=== PATIENT | female | born 1990 | race Caucasian/White ===

== ENCOUNTER 2020-07-11 22:26 | Observation (INO) | payer OTHER ==
[2020-07-11] MEDS ORDERED: SODIUM CHLORIDE 0.9% 1,000 ML IV STA (22:56)
[2020-07-11] MEDS ORDERED: FAMOTIDINE 20 MG/2 ML VIAL IV STA (22:58)
--- NOTE | 2020-07-11 23:00 | ED ---
General Adult HPI - General Chief complaint: Abdominal Pain Stated complaint: Diff Breathing Time Seen by Provider: 07/11/20 22:42 Source: patient, RN notes reviewed Mode of arrival: ambulatory Limitations: no limitations - History of Present Illness Initial comments: 30-year-old female presents to the emergency department for a chief complaint of "belly pain" 2 hours. Patient states she started pain in her upper abdomen about 2 hours ago. She admits this was 30 minutes after eating a chicken quesadilla. Patient states it was a sudden epigastric pain that causes nausea. She did vomit once. Patient denies radiating pain. Patient denies lower abdominal pain. Patient states that she takes a deep breath it causes upper abdominal pain. She denies any chest pain. Patient states she has had this pain before but usually resolves.Patient has no other complaints at this time including shortness of breath, chest pain, headache, or visual changes. - Related Data Allergies Allergy/AdvReac Type Severity Reaction Status Date / Time No Known Allergies Allergy Verified 07/11/20 22:38 Review of Systems ROS Statement: Those systems with pertinent positive or pertinent negative responses have been documented in the HPI. ROS Other: All systems not noted in ROS Statement are negative. Past Medical History Past Medical History: No Reported History History of Any Multi-Drug Resistant Organisms: None Reported Past Surgical History: No Surgical Hx Reported Past Psychological History: No Psychological Hx Reported Smoking Status: Current every day smoker Past Alcohol Use History: Occasional Past Drug Use History: Marijuana General Exam Limitations: no limitations General appearance: alert, in no apparent distress Head exam: Present: atraumatic, normocephalic, normal inspection Eye exam: Present: normal appearance, PERRL, EOMI. Absent: scleral icterus, conjunctival injection, periorbital swelling ENT exam: Present: normal exam, mucous membranes moist Neck exam: Present: normal inspection, full ROM. Absent: tenderness, meningismus, lymphadenopathy Respiratory exam: Present: normal lung sounds bilaterally. Absent: respiratory distress, wheezes, rales, rhonchi, stridor Cardiovascular Exam: Present: regular rate, normal rhythm, normal heart sounds. Absent: systolic murmur, diastolic murmur, rubs, gallop, clicks GI/Abdominal exam: Present: soft, tenderness (epigastric tenderness, right upper quadrant tenderness, positive Corbett sign. No lower abdominal tenderness.), normal bowel sounds. Absent: distended, guarding, rebound, rigid Neurological exam: Present: alert Course Vital Signs 07/11/20 07/12/20 22:35 01:00 Temperature 98.1 F 98.3 F Pulse Rate 74 87 Respiratory 16 20 Rate Blood Pressure 130/84 103/68 O2 Sat by Pulse 100 97 Oximetry Medical Decision Making - Medical Decision Making Vitals are stable. CBC CMP unremarkable. Amylase and lipase are within normal limits. Urinalysis is unremarkable. Ultrasound shows cholelithiasis with gallstones at the gallbladder neck. No dilated ducts. Patient continues to have abdominal discomfort and vomiting. She will be admitted with further management. - Lab Data Result diagrams: 07/11/20 23:13 07/11/20 23:13 Lab Results 07/11/20 07/11/20 07/11/20 Range/Units 23:13 23:13 23:13 WBC 8.1 (3.8-10.6) k/uL RBC 4.99 (3.80-5.40) m/uL Hgb 14.6 (11.4-16.0) gm/dL Hct 45.7 (34.0-46.0) % MCV 91.6 (80.0-100.0) fL MCH 29.2 (25.0-35.0) pg MCHC 31.9 (31.0-37.0) g/dL RDW 13.1 (11.5-15.5) % Plt Count 279 (150-450) k/uL Neutrophils % 63 % Lymphocytes % 28 % Monocytes % 5 % Eosinophils % 1 % Basophils % 1 % Neutrophils # 5.1 (1.3-7.7) k/uL Lymphocytes # 2.3 (1.0-4.8) k/uL Monocytes # 0.4 (0-1.0) k/uL Eosinophils # 0.1 (0-0.7) k/uL Basophils # 0.0 (0-0.2) k/uL Sodium (137-145) mmol/L Potassium (3.5-5.1) mmol/L Chloride (98-107) mmol/L Carbon Dioxide (22-30) mmol/L Anion Gap mmol/L BUN (7-17) mg/dL Creatinine (0.52-1.04) mg/dL Est GFR (CKD-EPI)AfAm (>60 ml/min/1.73 sqM) Est GFR (CKD-EPI)NonAf (>60 ml/min/1.73 sqM) Glucose (74-99) mg/dL Plasma Lactic Acid Aramnd (0.7-2.0) mmol/L Calcium (8.4-10.2) mg/dL Total Bilirubin (0.2-1.3) mg/dL AST (14-36) U/L ALT (4-34) U/L Alkaline Phosphatase (38-126) U/L Total Protein (6.3-8.2) g/dL Albumin (3.5-5.0) g/dL Amylase (30-110) U/L Lipase (23-300) U/L Urine Color Yellow Urine Appearance Cloudy H (Clear) Urine pH 6.0 (5.0-8.0) Ur Specific [place] 1.021 (1.001-1.035) Urine Protein Negative (Negative) Urine Glucose (UA) Negative (Negative) Urine Ketones Negative (Negative) Urine Blood Negative (Negative) Urine Nitrite Negative (Negative) Urine Bilirubin Negative (Negative) Urine Urobilinogen <2.0 (<2.0) mg/dL Ur Leukocyte Esterase Trace H (Negative) Urine RBC 2 (0-5) /hpf Urine WBC 2 (0-5) /hpf Ur Squamous Epith Cells 4 (0-4) /hpf Urine Mucus Few H (None) /hpf Urine HCG, Qual Not Detected (Not Detectd) 07/11/20 07/11/20 Range/Units 23:13 23:13 WBC (3.8-10.6) k/uL RBC (3.80-5.40) m/uL Hgb (11.4-16.0) gm/dL Hct (34.0-46.0) % MCV (80.0-100.0) fL MCH (25.0-35.0) pg MCHC (31.0-37.0) g/dL RDW (11.5-15.5) % Plt Count (150-450) k/uL Neutrophils % % Lymphocytes % % Monocytes % % Eosinophils % % Basophils % % Neutrophils # (1.3-7.7) k/uL Lymphocytes # (1.0-4.8) k/uL Monocytes # (0-1.0) k/uL Eosinophils # (0-0.7) k/uL Basophils # (0-0.2) k/uL Sodium 138 (137-145) mmol/L Potassium 4.3 (3.5-5.1) mmol/L Chloride 103 (98-107) mmol/L Carbon Dioxide 27 (22-30) mmol/L Anion Gap 8 mmol/L BUN 8 (7-17) mg/dL Creatinine 0.79 (0.52-1.04) mg/dL Est GFR (CKD-EPI)AfAm >90 (>60 ml/min/1.73 sqM) Est GFR (CKD-EPI)NonAf >90 (>60 ml/min/1.73 sqM) Glucose 103 H (74-99) mg/dL Plasma Lactic Acid Armand 0.8 (0.7-2.0) mmol/L Calcium 9.9 (8.4-10.2) mg/dL Total Bilirubin 0.4 (0.2-1.3) mg/dL AST 22 (14-36) U/L ALT 19 (4-34) U/L Alkaline Phosphatase 61 (38-126) U/L Total Protein 7.6 (6.3-8.2) g/dL Albumin 4.7 (3.5-5.0) g/dL Amylase 50 (30-110) U/L Lipase 87 (23-300) U/L Urine Color Urine Appearance (Clear) Urine pH (5.0-8.0) Ur Specific [place] (1.001-1.035) Urine Protein (Negative) Urine Glucose (UA) (Negative) Urine Ketones (Negative) Urine Blood (Negative) Urine Nitrite (Negative) Urine Bilirubin (Negative) Urine Urobilinogen (<2.0) mg/dL Ur Leukocyte Esterase (Negative) Urine RBC (0-5) /hpf Urine WBC (0-5) /hpf Ur Squamous Epith Cells (0-4) /hpf Urine Mucus (None) /hpf Urine HCG, Qual (Not Detectd) Disposition Clinical Impression: Cholelithiasis, Abdominal pain, Vomiting Disposition: ADMITTED IP TO THIS [facility] Is patient prescribed a controlled substance at d/c from ED?: No Referrals: None,Stated [Primary Care Provider] - 1-2 days Time of Disposition: 01:38
[2020-07-11 23:26] LABS: Basophils % (A) 1 %; Eosinophils # (A) 0.1 k/uL (0-0.7); Eosinophils % (A) 1 %; HCT 45.7 % (34.0-46.0); HGB 14.6 gm/dL (11.4-16.0); Lymphocytes # (A) 2.3 k/uL (1.0-4.8); Lymphocytes % (A) 28 %; MCH 29.2 pg (25.0-35.0); MCHC 31.9 g/dL (31.0-37.0); MCV 91.6 fL (80.0-100.0); Mean Platelet Volume 7.6; Monocytes # (A) 0.4 k/uL (0-1.0); Monocytes % (A) 5 %; Neutrophils # (A) 5.1 k/uL (1.3-7.7); Neutrophils % (A) 63 %; Platelet Count 279 k/uL (150-450); RBC 4.99 m/uL (3.80-5.40); RDW 13.1 % (11.5-15.5); WBC 8.1 k/uL (3.8-10.6)
[2020-07-11 23:32] LABS: Appearance,Urine Cloudy (Clear); Bilirubin,Urine Negative (Negative); Blood,Urine Negative (Negative); Color,Urine Yellow; Glucose,Urine (UA) Negative (Negative); Ketones,Urine Negative (Negative); Leukocyte Esterase,Urine Trace (Negative); Mucus,Urine Few /hpf; Nitrite,Urine Negative (Negative); Protein,Urine Negative (Negative); RBC,Urine 2 /hpf (0-5); Specific Gravity,Urine 1.021 (1.001-1.035); Squamous Epithelial Cell,Urine 4 /hpf (0-4); Urobilinogen,Urine <2.0 mg/dL (<2.0); WBC,Urine 2 /hpf (0-5)
[2020-07-11 23:35] LABS: ALT 19 U/L (4-34); AST 22 U/L (14-36); African American GFR (CKD) >90 (>60 ml/min/1.73 sqM); Albumin 4.7 g/dL (3.5-5.0); Alkaline Phosphatase 61 U/L (38-126); Amylase 50 U/L (30-110); Anion Gap 8 mmol/L; Blood Urea Nitrogen 8 mg/dL (7-17); Calcium 9.9 mg/dL (8.4-10.2); Carbon Dioxide 27 mmol/L (22-30); Chloride 103 mmol/L (98-107); Glucose 103 mg/dL (74-99); Non-African American GFR(CKD) >90 (>60 ml/min/1.73 sqM); Potassium 4.3 mmol/L (3.5-5.1); Sodium 138 mmol/L (137-145); Total Bilirubin 0.4 mg/dL (0.2-1.3); Total Protein 7.6 g/dL (6.3-8.2)
[2020-07-11] MEDS: ONDANSETRON 4 MG/2 ML VIAL IVP STA (23:48)
[2020-07-12] MEDS ORDERED: KETOROLAC 15 MG/ML 1 ML VIAL IVP STA (00:28)
--- NOTE | 2020-07-12 00:31 | US ---
EXAMINATION TYPE: US abdomen limited DATE OF EXAM: 07/11/2020 COMPARISON: NONE CLINICAL HISTORY: ruq. EXAM MEASUREMENTS: There is no evidence of pancreatic mass. Liver shows no focal defect. There are echogenic foci in the gallbladder with shadowing. Gallbladder wall measures 3 mm. Gallbladder measures 3.3 cm in diameter. The right kidney measures 9.9 x 3.3 cm. There is no hydronephrosis. There are gallstones at the gall bladder neck. The common bile duct measures 6 mm. Impression Cholelithiasis. Gallstone at the gallbladder neck. No dilated ducts.
[2020-07-12] MEDS ORDERED: METOCLOPRAMIDE 5 MG/ML 2 ML VIAL IVP STA (00:36)
[2020-07-12] MEDS ORDERED: diphenhydrAMINE 50 MG/ML 1 ML VIAL IVP STA (00:37)
[2020-07-12] MEDS ORDERED: NALOXONE 0.4 MG/ML 1 ML VIAL IV PRN (01:35)
[2020-07-12] MEDS: SODIUM CHLORIDE 0.9% 1,000 ML IV SCH ×3 (02:12→20:19)
[2020-07-12] MEDS: HYDROmorphone 0.5 MG/0.5 ML SYRINGE IVP PRN ×6 (06:50→19:07)
[2020-07-12] MEDS: ONDANSETRON 4 MG/2 ML VIAL IVP PRN ×2 (06:50→20:14)
[2020-07-12] MEDS ORDERED: IV FLUID CONTINUATION 100 ML IV ONE (10:35)
[2020-07-12] MEDS ORDERED: LACTATED RINGERS 1,000 ML IV ONE (10:36)
[2020-07-12] MEDS ORDERED: LIDOCAINE 1% (10MG/ML) FOR IV START INTRADERMA ONE (10:51)
--- NOTE | 2020-07-12 10:58 | P.GSHP ---
History of Present Illness H&P Date: 07/12/20 Chief Complaint: Epigastric and right quadrant pain This is a 30-year-old female was admitted through the emergency room last complaints of epigastric right upper quadrant pain. Patient's workup found have evidence of gallstones in the neck of the gallbladder. She admitted for cholecystitis and cholelithiasis. Past Medical History Past Medical History: No Reported History History of Any Multi-Drug Resistant Organisms: None Reported Past Surgical History: No Surgical Hx Reported Past Anesthesia/Blood Transfusion Reactions: No Reported Reaction Past Psychological History: Anxiety, Depression Smoking Status: Current every day smoker Past Alcohol Use History: Occasional Past Drug Use History: Marijuana Additional Drug Use History / Comment(s): smokes half a pack a day since 18, minus three years that she did not smoke. Smokes marijuana twice weekly. - Past Family History Father Family Medical History: Hypertension Medications and Allergies Home Medications Medication Instructions Recorded Confirmed Type No Known Home Medications 07/12/20 07/12/20 History Allergies Allergy/AdvReac Type Severity Reaction Status Date / Time No Known Allergies Allergy Verified 07/12/20 07:19 Surgical - Exam Vital Signs Temp Pulse Resp BP Pulse Ox 98.1 F 74 16 130/84 100 07/11/20 22:35 07/11/20 22:35 07/11/20 22:35 07/11/20 22:35 07/11/20 22:35 - General well developed, well nourished, no distress - Eyes PERRL - ENT normal pinna - Neck no masses - Respiratory normal expansion - Cardiovascular Rhythm: regular - Abdomen Mild right quadrant pain Abdomen: soft Results - Labs 07/11/20 23:13 07/11/20 23:13 Abnormal Lab Results - Last 24 Hours (Table) 07/11/20 07/11/20 Range/Units 23:13 23:13 Glucose 103 H (74-99) mg/dL Urine Appearance Cloudy H (Clear) Ur Leukocyte Esterase Trace H (Negative) Urine Mucus Few H (None) /hpf Diabetes panel 07/11/20 Range/Units 23:13 Sodium 138 (137-145) mmol/L Potassium 4.3 (3.5-5.1) mmol/L Chloride 103 (98-107) mmol/L Carbon Dioxide 27 (22-30) mmol/L BUN 8 (7-17) mg/dL Creatinine 0.79 (0.52-1.04) mg/dL Glucose 103 H (74-99) mg/dL Calcium 9.9 (8.4-10.2) mg/dL AST 22 (14-36) U/L ALT 19 (4-34) U/L Alkaline Phosphatase 61 (38-126) U/L Total Protein 7.6 (6.3-8.2) g/dL Albumin 4.7 (3.5-5.0) g/dL Calcium panel 07/11/20 Range/Units 23:13 Calcium 9.9 (8.4-10.2) mg/dL Albumin 4.7 (3.5-5.0) g/dL Pituitary panel 07/11/20 Range/Units 23:13 Sodium 138 (137-145) mmol/L Potassium 4.3 (3.5-5.1) mmol/L Chloride 103 (98-107) mmol/L Carbon Dioxide 27 (22-30) mmol/L BUN 8 (7-17) mg/dL Creatinine 0.79 (0.52-1.04) mg/dL Glucose 103 H (74-99) mg/dL Calcium 9.9 (8.4-10.2) mg/dL Adrenal panel 07/11/20 Range/Units 23:13 Sodium 138 (137-145) mmol/L Potassium 4.3 (3.5-5.1) mmol/L Chloride 103 (98-107) mmol/L Carbon Dioxide 27 (22-30) mmol/L BUN 8 (7-17) mg/dL Creatinine 0.79 (0.52-1.04) mg/dL Glucose 103 H (74-99) mg/dL Calcium 9.9 (8.4-10.2) mg/dL Total Bilirubin 0.4 (0.2-1.3) mg/dL AST 22 (14-36) U/L ALT 19 (4-34) U/L Alkaline Phosphatase 61 (38-126) U/L Total Protein 7.6 (6.3-8.2) g/dL Albumin 4.7 (3.5-5.0) g/dL Assessment and Plan Assessment: Cholelithiasis Cholecystitis Patient will undergo laparoscopic cholecystectomy.
[2020-07-12] MEDS ORDERED: SCOPOLAMINE 1.5MG/72HR PATCH TRANSDERM ONE (11:00)
[2020-07-12] MEDS ORDERED: DEXAMETHASONE SOD PHOSPHATE 10 MG/ML 1 ML VIAL IV ONE (11:00)
[2020-07-12] MEDS ORDERED: HEPARIN SODIUM,PORCINE 5,000 UNIT/ML 1 ML VIAL SQ ONE (11:08)
[2020-07-12] MEDS ORDERED: HEPARIN SODIUM,PORCINE 5,000 UNIT/ML 1 ML VIAL ONE (11:11)
[2020-07-12] MEDS ORDERED: fentaNYL (PF) 50 MCG/ML 2 ML AMP ONE (11:42)
[2020-07-12] MEDS ORDERED: NEOSTIGMINE 1 MG/ML 10 ML VIAL ONE (11:42)
[2020-07-12] MEDS ORDERED: HYDROmorphone (PF) 1 MG/ML ONE (11:42)
[2020-07-12] MEDS ORDERED: ROCURONIUM BROMIDE 10 MG/ML 5 ML VIAL IV ONE (11:42)
[2020-07-12] MEDS ORDERED: SUCCINYLCHOLINE CHLORIDE 100 MG/5 ML SYR IV ONE (11:42)
[2020-07-12] MEDS ORDERED: PROPOFOL 10 MG/ML 20 ML VIAL IV ONE (11:42)
[2020-07-12] MEDS ORDERED: LIDOCAINE 1% INJ 10MG/ML (20 ML MDV) ONE (11:42)
[2020-07-12] MEDS ORDERED: GLYCOPYRROLATE 0.2 MG/ML 2 ML VIAL ONE (11:42)
[2020-07-12] MEDS ORDERED: KETOROLAC 15 MG/ML 1 ML VIAL ONE (11:42)
[2020-07-12] MEDS ORDERED: MIDAZOLAM 2 MG/2 ML VIAL ONE (11:42)
[2020-07-12] MEDS ORDERED: BUPIVACAINE (PF) 0.5% 30 ML VIAL SQ ONE (12:10)
--- NOTE | 2020-07-12 12:20 | P.OP ---
Date of Procedure: 07/12/20 Preoperative Diagnosis: Cholelithiasis Postoperative Diagnosis: Cholelithiasis Cholecystitis Procedure(s) Performed: Laparoscopic cholecystectomy Anesthesia: NILAM Surgeon: Isaac Wright Estimated Blood Loss (ml): 5 Pathology: other (Gallbladder) Condition: stable Disposition: PACU Description of Procedure: The patient was placed on the operating table. The patient received a general endotracheal tube anesthesia. The patients abdomen was prepped and draped in the usual sterile fashion. Through an infraumbilical stab incision, the fascia of the anterior abdominal wall was grasped with a pair of Kochers and then the Veress needle was placed in the peritoneal cavity. Position of the Veress needle was confirmed with positive drop test. The abdomen was then insufflated. After adequate insufflation, the 10 mm trocar was placed in the peritoneal cavity. Following this the laparoscope was placed in the peritoneal cavity. The patient was placed in the head-up, right side up position and then a 5 mm trocar was placed in the right lateral and right subcostal position under direct visualization. A 8 mm trocar was placed in the epigastric position. The gallbladder was grasped in the fundus and infundibulum. Traction on the gallbladder was placed in the lateral and the cephalad positions. The triangle of Calot was visualized.. The cystic duct was bluntly dissected until the union of the cystic duct and common bile duct was seen. A critical view of safety was achieved. The cystic duct was then divided and sealed with the Harmonic scissors. A PDS Endoloop was then placed throughout the cystic duct stump. The cystic artery divided and sealed with the Harmonic scissors. The gallbladder was then removed from the liver bed using Harmonic scissors. The gallbladder was then extracted through the epigastric port site. Operative field was checked for any bleeding spots and Harmonic scissors was used to coagulate the liver bed. The abdomen was irrigated. The trocars were removed. The skin was closed using interrupted 3-0 Vicryl suture. Dermabond dressing were applied. The patient tolerated the procedure well.
[2020-07-12] MEDS: ONDANSETRON 4 MG/2 ML VIAL IVP STA (12:55)
[2020-07-12] MEDS ORDERED: NICOTINE 14MG/24HR PATCH TRANSDERM STA (13:31)
[2020-07-12] MEDS: HYDROcodone/APAP 7.5-325MG 1 EACH TAB PO PRN ×2 (13:41→20:18)
[2020-07-13] MEDS: SODIUM CHLORIDE 0.9% 1,000 ML IV SCH (00:32)
[2020-07-13] MEDS: HYDROmorphone 0.5 MG/0.5 ML SYRINGE IVP PRN ×3 (00:32→11:51)
[2020-07-13] MEDS: HYDROcodone/APAP 7.5-325MG 1 EACH TAB PO PRN ×2 (05:59→13:24)
[2020-07-13 08:22] VITALS: TEMP 98.2
[2020-07-13] MEDS: ONDANSETRON 4 MG/2 ML VIAL IVP PRN (08:33)
--- NOTE | 2020-07-13 11:47 | P.DS ---
Providers Date of admission: 07/12/20 02:00 Expected date of discharge: 07/13/20 Attending physician: Isaac Wright Primary care physician: Stated None Hospital Course: Discharge diagnosis 1. Acute cholecystitis 2. Cholelithiasis Hospital course This is a 30-year-old female was admitted through the emergency room last complaints of epigastric right upper quadrant pain. Patient's workup found have evidence of gallstones in the neck of the gallbladder. She admitted for cholecystitis and cholelithiasis. Patient underwent Laparoscopic cholecystectomy with Dr. Wright. She tolerated surgery well with no complications. She reports passing gas. She is tolerating diet. She has been up and ambulating. She is afebrile. She is stable for discharge. Physician Upholstery Handler note has been reviewed by physician. Signing provider agrees with the documented findings, assessment, and plan of care. Patient Condition at Discharge: Stable Plan - Discharge Summary Discharge Rx Participant: No New Discharge Prescriptions: New Docusate [Colace] 100 mg PO BID #30 capsule Hydrocodone/Acetaminophen [[place] 5-325] 1 tab PO Q6HR PRN 3 Days #12 tab PRN Reason: Pain Discharge Medication List Docusate [Colace] 100 mg PO BID #30 capsule 07/13/20 [Rx] Hydrocodone/Acetaminophen [[place] 5-325] 1 tab PO Q6HR PRN 3 Days #12 tab 07/13/20 [Rx] Follow up Appointment(s)/Referral(s): None,Stated [Primary Care Provider] - 1-2 days Isaac Wright MD [STAFF PHYSICIAN] - 1 Week Patient Instructions/Handouts: *Surgery [facility] - Scopalamine Patch Instructions Activity/Diet/Wound Care/Special Instructions: No driving while taking [place] No lifting over 10 pounds You may shower. No soaking or tub baths for 2 weeks Very light activity until you are reevaluated at your follow up appointment with your surgeon Diet Low fat Discharge Disposition: HOME SELF-CARE
[2020-07-13 12:29] VITALS: BP 115/74; PULSE 78; RESP 16
== END 2020-07-13 14:25 | disposition home or self-care (01) ==
LOC: EC 22:26 → 6PED 07-12 02:00
PROVIDERS: ADMIT Surgery; ATTEND Surgery
DX: K80.12 Calculus of gallbladder with acute and chronic cholecystitis without obstruction (principal); F41.9 Anxiety disorder, unspecified; F32.9 Major depressive disorder, single episode, unspecified; F17.210 Nicotine dependence, cigarettes, uncomplicated; Z82.49 Family history of ischemic heart disease and other diseases of the circulatory system; Z79.891 Long term (current) use of opiate analgesic
CPT/HCPCS: 96375 ×2; 96361; 96374; 99285; 36415; 81025 ×2; 88304; 80053; 82150; 83605; 83690; 85025; 81001; 76705; 47562; G0378 ×2; S4990; J2250; J1200; J1644; J1100; J2710; J2765; J0690; J2405 ×3; J2001; J3010; J1170 ×3; J1885; J0330; J2704

== ENCOUNTER 2021-05-01 21:32 | Emergency (ER) | payer OTHER ==
[2021-05-01] MEDS ORDERED: SODIUM CHLORIDE 0.9% 1,000 ML IV STA (21:49)
[2021-05-01 22:30] VITALS: TEMP 98.7
[2021-05-01 22:30] LABS: Basophils % (A) 1 %; Eosinophils # (A) 0.1 k/uL (0-0.7); Eosinophils % (A) 2 %; HCT 37.7 % (34.0-46.0); HGB 12.7 gm/dL (11.4-16.0); Lymphocytes # (A) 2.4 k/uL (1.0-4.8); Lymphocytes % (A) 33 %; MCH 28.5 pg (25.0-35.0); MCHC 33.7 g/dL (31.0-37.0); MCV 84.6 fL (80.0-100.0); Mean Platelet Volume 6.8; Monocytes # (A) 0.3 k/uL (0-1.0); Monocytes % (A) 4 %; Neutrophils # (A) 4.2 k/uL (1.3-7.7); Neutrophils % (A) 57 %; Platelet Count 336 k/uL (150-450); RBC 4.45 m/uL (3.80-5.40); RDW 13.4 % (11.5-15.5); WBC 7.3 k/uL (3.8-10.6)
--- NOTE | 2021-05-01 22:30 | ED ---
Overdose HPI - General Stated Complaint: Overdose Source: patient, EMS Mode of arrival: EMS Limitations: altered mental status - History of Present Illness Initial Comments: 31-year-old white female, alert to person and place presents to the emergency room via EMS with an overdose of heroin. EMS states that the boyfriend was with patient and gave her Narcan and then called EMS. Patient arousable admits to using heroin but will not answer whether with IV. She does admit to having used heroin in the past and denies any other drug use. Patient denies any pain at this time this keeps stating that she is cold. She is asking for the boyfriend Shaji to come to the bedside. She denies any assault or injuries. She states that she is safe relationship and is not doing anything she does not want to do. Patient denies any other medical history. Vital signs are stable at this time with sat of 98% on room air. MD Complaint: accidental overdose Intent: other (Accidental overdose of heroin) How Overdose Was Discovered: called family/friend, family/friend present at time (Per EMS boyfriend gave Narcan) Context: Accidental Overdose: uncertain what happened Treatments Prior to Arrival: narcan - Related Data Previous Rx's Medication Instructions Recorded Docusate [Colace] 100 mg PO BID #30 capsule 07/13/20 Hydrocodone/Acetaminophen [[place] 1 tab PO Q6HR PRN 3 Days #12 tab 07/13/20 5-325] Allergies Allergy/AdvReac Type Severity Reaction Status Date / Time No Known Allergies Allergy Verified 07/12/20 07:19 Review of Systems ROS Statement: Those systems with pertinent positive or pertinent negative responses have been documented in the HPI. ROS Other: All systems not noted in ROS Statement are negative. Past Medical History Past Medical History: No Reported History History of Any Multi-Drug Resistant Organisms: None Reported Past Surgical History: No Surgical Hx Reported Past Anesthesia/Blood Transfusion Reactions: No Reported Reaction Past Psychological History: Anxiety, Depression Smoking Status: Current every day smoker Past Alcohol Use History: Occasional Past Drug Use History: Marijuana Additional Drug Use History / Comment(s): smokes half a pack a day since 18, minus three years that she did not smoke. Smokes marijuana twice weekly. - Past Family History Father Family Medical History: Hypertension General Exam Limitations: altered mental status (Slow to respond, heroin overdose) General appearance: alert, in no apparent distress Head exam: Present: atraumatic, normocephalic, normal inspection Eye exam: Present: normal appearance, PERRL, EOMI. Absent: scleral icterus, conjunctival injection, nystagmus, periorbital swelling Pupils: Present: normal accommodation ENT exam: Present: normal exam, mucous membranes moist Neck exam: Present: normal inspection, full ROM. Absent: tenderness, meningismus, lymphadenopathy, thyromegaly Respiratory exam: Present: normal lung sounds bilaterally. Absent: respiratory distress, wheezes, rales, rhonchi, stridor, chest wall tenderness, accessory muscle use, decreased breath sounds Cardiovascular Exam: Present: regular rate, normal rhythm, normal heart sounds. Absent: systolic murmur, diastolic murmur, rubs, gallop, clicks GI/Abdominal exam: Present: soft, normal bowel sounds. Absent: distended, tenderness, guarding, rebound, rigid Extremities exam: Present: normal inspection, full ROM, normal capillary refill. Absent: tenderness, pedal edema, joint swelling, calf tenderness Back exam: Present: normal inspection, full ROM. Absent: tenderness, CVA tenderness (R), CVA tenderness (L), muscle spasm, paraspinal tenderness, vertebral tenderness, rash noted Neurological exam: Present: alert. Absent: CN II-XII intact Psychiatric exam: Present: flat affect. Absent: manic, homicidal ideation, suicidal ideation Skin exam: Present: dry, intact, normal color. Absent: rash, cyanosis, diaphoretic, erythema, petechiae, pallor, mottled Course Vital Signs 05/01/21 21:49 Temperature 98.7 F Pulse Rate 82 Respiratory 22 Rate Blood Pressure 132/80 O2 Sat by Pulse 97 Oximetry Medical Decision Making - Medical Decision Making Hemoglobin and hematocrit is 12 and 37 respectively, white count 7.3. Patient maintaining oxygen level on room air of 98% or better. She is awake and alert and answering questions properly. Salicylate and acetaminophen and alcohol levels are all negative. Electrolytes are within normal limits. EKG sinus rhythm with no ST elevation. Patient will be discharged home with her significant othe and directed to stop using heroin because it will kill her. Case discussed with Dr. Frederick - Lab Data Result diagrams: 05/01/21 22:10 05/01/21 22:10 Lab Results 05/01/21 05/01/21 05/01/21 Range/Units 22:10 22:10 22:10 WBC 7.3 (3.8-10.6) k/uL RBC 4.45 (3.80-5.40) m/uL Hgb 12.7 (11.4-16.0) gm/dL Hct 37.7 (34.0-46.0) % MCV 84.6 (80.0-100.0) fL MCH 28.5 (25.0-35.0) pg MCHC 33.7 (31.0-37.0) g/dL RDW 13.4 (11.5-15.5) % Plt Count 336 (150-450) k/uL MPV 6.8 Neutrophils % 57 % Lymphocytes % 33 % Monocytes % 4 % Eosinophils % 2 % Basophils % 1 % Neutrophils # 4.2 (1.3-7.7) k/uL Lymphocytes # 2.4 (1.0-4.8) k/uL Monocytes # 0.3 (0-1.0) k/uL Eosinophils # 0.1 (0-0.7) k/uL Basophils # 0.0 (0-0.2) k/uL Sodium 139 (137-145) mmol/L Potassium 3.9 (3.5-5.1) mmol/L Chloride 101 (98-107) mmol/L Carbon Dioxide 28 (22-30) mmol/L Anion Gap 10 mmol/L BUN 13 (7-17) mg/dL Creatinine 0.64 (0.52-1.04) mg/dL Est GFR (CKD-EPI)AfAm >90 (>60 ml/min/1.73 sqM) Est GFR (CKD-EPI)NonAf >90 (>60 ml/min/1.73 sqM) Glucose 78 (74-99) mg/dL Plasma Lactic Acid Armand 1.0 (0.7-2.0) mmol/L Calcium 9.7 (8.4-10.2) mg/dL Total Bilirubin 0.5 (0.2-1.3) mg/dL AST 28 (14-36) U/L ALT 15 (4-34) U/L Alkaline Phosphatase 60 (38-126) U/L Total Protein 7.4 (6.3-8.2) g/dL Albumin 4.5 (3.5-5.0) g/dL Amylase 59 (30-110) U/L Lipase 62 (23-300) U/L Salicylates <1.0 mg/dL Acetaminophen <10.0 ug/mL Serum Alcohol <10 mg/dL - EKG Data EKG shows normal: sinus rhythm, intervals (Ventricular rate of 86, IN interval 0.116, QRS of 0.96, QTC of 0.452) Disposition Clinical Impression: Accidental drug overdose, Heroin abuse Disposition: HOME SELF-CARE Condition: Fair Instructions (If sedation given, give patient instructions): Adult Overdose (ED) Additional Instructions: Stop using heroin he will kill you. Follow-up with your primary care doctor. Contact [facility] for help with drug addiction. Is patient prescribed a controlled substance at d/c from ED?: No Referrals: None,Stated [Primary Care Provider] - 1-2 days Time of Disposition: 22:54
[2021-05-01 22:43] LABS: ALT 15 U/L (4-34); AST 28 U/L (14-36); Acetaminophen <10.0 ug/mL; African American GFR (CKD) >90 (>60 ml/min/1.73 sqM); Albumin 4.5 g/dL (3.5-5.0); Alcohol <10 mg/dL; Alkaline Phosphatase 60 U/L (38-126); Amylase 59 U/L (30-110); Anion Gap 10 mmol/L; Blood Urea Nitrogen 13 mg/dL (7-17); Calcium 9.7 mg/dL (8.4-10.2); Carbon Dioxide 28 mmol/L (22-30); Chloride 101 mmol/L (98-107); Glucose 78 mg/dL (74-99); Lipase 62 U/L (23-300); Non-African American GFR(CKD) >90 (>60 ml/min/1.73 sqM); Potassium 3.9 mmol/L (3.5-5.1); Salicylate <1.0 mg/dL; Sodium 139 mmol/L (137-145); Total Bilirubin 0.5 mg/dL (0.2-1.3); Total Protein 7.4 g/dL (6.3-8.2)
[2021-05-01 23:18] VITALS: BP 133/80; PULSE 101; RESP 18
== END 2021-05-01 23:54 | disposition home or self-care (01) ==
LOC: EC 21:32
DX: T40.1X1A Poisoning by heroin, accidental (unintentional), initial encounter (principal); F11.10 Opioid abuse, uncomplicated; F12.90 Cannabis use, unspecified, uncomplicated; F17.210 Nicotine dependence, cigarettes, uncomplicated; F32.9 Major depressive disorder, single episode, unspecified; F41.9 Anxiety disorder, unspecified
CPT/HCPCS: 36415; 93005; 80053; 82150; 83605; 83690; 85025; 80143; 80179; 99284; G0480; 80320

== ENCOUNTER 2021-11-19 19:08 | Emergency (ER) | payer OTHER ==
[2021-11-19 20:25] VITALS: RESP 20; TEMP 98.8
[2021-11-19 21:06] LABS: Appearance,Urine Cloudy (Clear); Bacteria,Urine Rare /hpf; Bilirubin,Urine Negative (Negative); Blood,Urine Negative (Negative); Color,Urine Yellow; Glucose,Urine (UA) Negative (Negative); Ketones,Urine Trace (Negative); Leukocyte Esterase,Urine Negative (Negative); Mucus,Urine Occasional /hpf; Nitrite,Urine Negative (Negative); PH, Urine 5.5 (5.0-8.0); Protein,Urine Trace (Negative); RBC,Urine 3 /hpf (0-5); Squamous Epithelial Cell,Urine 5 /hpf (0-4); WBC,Urine 3 /hpf (0-5)
[2021-11-19 21:18] LABS: Specific Gravity,Urine 1.046 (1.001-1.035)
--- NOTE | 2021-11-19 22:43 | ED ---
General Adult HPI - General Chief complaint: Recheck/Abnormal Lab/Rx Stated complaint: Headache,Cough,Fever Time Seen by Provider: 11/19/21 20:00 Source: patient Mode of arrival: ambulatory Limitations: no limitations - History of Present Illness Initial comments: This 31-year-old female presents with complaint of covid-like symptoms. She states that for the past 3 weeks she has had cough, sore throat, headache, and fatigue. She states that it has been worse over the past 3 days. She has slept a lot more than normal. She has had chills but no definitive fever. She states that she had some mild dysuria as well and is questioning the possibility of a urinary tract infection. She also is an IV drug abuser and states that she is developed a erythematous rash at her injection sites of her bilateral forearms. She denies any possibility of . No other complaints or modifying factors. - Related Data Previous Rx's Medication Instructions Recorded Docusate [Colace] 100 mg PO BID #30 capsule 07/13/20 Hydrocodone/Acetaminophen [[place] 1 tab PO Q6HR PRN 3 Days #12 tab 07/13/20 5-325] Albuterol Sulfate [Albuterol 4 puff PO Q4H PRN #8.5 gm 11/19/21 Sulfate Hfa] Sulfamethox-Tmp 800-160Mg [Bactrim 1 tab PO Q12HR #20 tab 11/19/21 DS 800-160 mg] dexAMETHasone ORAL [Hexadrol] 6 mg PO DAILY #7 tablet 11/19/21 Allergies Allergy/AdvReac Type Severity Reaction Status Date / Time No Known Allergies Allergy Verified 11/19/21 20:22 Review of Systems ROS Statement: Those systems with pertinent positive or pertinent negative responses have been documented in the HPI. ROS Other: All systems not noted in ROS Statement are negative. Past Medical History Past Medical History: No Reported History History of Any Multi-Drug Resistant Organisms: None Reported Past Surgical History: Cholecystectomy Past Anesthesia/Blood Transfusion Reactions: No Reported Reaction Past Psychological History: Anxiety, Depression Smoking Status: Current every day smoker Past Alcohol Use History: Occasional Past Drug Use History: IV Drug Use, Marijuana - Past Family History Father Family Medical History: Hypertension General Exam - General Exam Comments Initial Comments: GENERAL: The patient is well nourished and well hydrated. VITAL SIGNS: Heart rate, blood pressure, respiratory rate reviewed as recorded in nurse's notes. EYES: Pupils are round and reactive. Extraocular movements are intact. No conjunctival / lid redness or swelling. ENT: No external evidence of injury, swelling, or ecchymosis. Airway is patent. Throat is clear. NECK: Nontender. No swelling or evidence of injury. No subcutaneous emphysema. Trachea is midline. No thyroid mass. HEART: Regular rate and rhythm. Good peripheral pulses. LUNGS/CHEST: Breath sounds clear and equal bilaterally. No rales, rhonchi, or wheezes. No ecchymosis, subcutaneous emphysema, or tenderness. ABDOMEN: Abdomen soft without tenderness. No palpable masses or organomegaly. No peritoneal signs. No abdominal wall swelling or ecchymosis. EXTREMITIES: No extremity tenderness. Normal muscle tone and function. No thoracolumbar tenderness. NEUROLOGIC: Sensation is grossly intact. Cranial nerve exam reveals face is symmetrical, tongue is midline, speech is clear. SKIN: No abrasions or ecchymosis is noted. There is some track noland noted to bilateral forearms with associated mild erythema. There is no abscess formation identified. PSYCHIATRIC: Alert and oriented. Appropriate behavior and judgment. Limitations: no limitations Course Vital Signs 11/19/21 20:22 Temperature 98.8 F Pulse Rate 74 Respiratory 20 Rate Blood Pressure 102/59 O2 Sat by Pulse 100 Oximetry Medical Decision Making - Medical Decision Making The patient is seen and examined. Her covid test came back positive. The urine is negative. The urinalysis does not show any definitive evidence of urinary tract infection. Her oxygenation status is stable. It appears as though she does have a slight cellulitis to her forearms worse on the left side. She will be prescribed antibiotics for her cellulitis. She also will be prescribed albuterol HFA and dexamethasone. Return parameters are discussed. She is counseled regarding intravenous drug abuse. Close follow-up recommended. - Lab Data Lab Results 11/19/21 11/19/21 11/19/21 Range/Units 20:34 20:49 20:49 Urine Color Yellow Urine Appearance Cloudy H (Clear) Urine pH 5.5 (5.0-8.0) Ur Specific [place] 1.046 H (1.001-1.035) Urine Protein Trace H (Negative) Urine Glucose (UA) Negative (Negative) Urine Ketones Trace H (Negative) Urine Blood Negative (Negative) Urine Nitrite Negative (Negative) Urine Bilirubin Negative (Negative) Urine Urobilinogen 2.0 (<2.0) mg/dL Ur Leukocyte Esterase Negative (Negative) Urine RBC 3 (0-5) /hpf Urine WBC 3 (0-5) /hpf Ur Squamous Epith Cells 5 H (0-4) /hpf Urine Bacteria Rare H (None) /hpf Urine Mucus Occasional H (None) /hpf Urine HCG, Qual Not Detected (Not Detectd) Coronavirus (PCR) Detected A (Not Detectd) Disposition Clinical Impression: Intravenous drug abuse, COVID, Fatigue, Headache Disposition: HOME SELF-CARE Condition: Good Instructions (If sedation given, give patient instructions): Coronavirus Disease 2019 (COVID-19), Cellulitis (ED), Opioid Use Disorder (ED) Prescriptions: Albuterol Sulfate [Albuterol Sulfate Hfa] 4 puff PO Q4H PRN #8.5 gm PRN Reason: Cough Sulfamethox-Tmp 800-160Mg [Bactrim DS 800-160 mg] 1 tab PO Q12HR #20 tab dexAMETHasone ORAL [Hexadrol] 6 mg PO DAILY #7 tablet Is patient prescribed a controlled substance at d/c from ED?: No Referrals: None,Stated [Primary Care Provider] - 1-2 days Time of Disposition: 22:49
[2021-11-19 23:42] VITALS: BP 100/62; PULSE 72
== END 2021-11-19 23:15 | disposition home or self-care (01) ==
LOC: EC 19:08
DX: U07.1 COVID-19 (principal); F19.10 Other psychoactive substance abuse, uncomplicated; F17.200 Nicotine dependence, unspecified, uncomplicated; F12.90 Cannabis use, unspecified, uncomplicated
CPT/HCPCS: 81001; 81025; 87635; 99284

== ENCOUNTER 2022-01-24 04:41 | Emergency (ER) | payer OTHER ==
--- NOTE | 2022-01-24 04:44 | ED ---
Overdose HPI - General Stated Complaint: Overdose Time Seen by Provider: 01/24/22 04:43 Source: RN notes reviewed, old records reviewed Mode of arrival: EMS Limitations: no limitations - History of Present Illness Initial Comments: This is a 31-year-old female to the emergency department for evaluation. Patient presents of heroin overdose requiring Narcan. Patient currently is in no acute distress awake alert acting appropriately. She denies any other drugs or alcohol. MD Complaint: accidental overdose -: minutes(s) Intent: unwilling to say How Overdose Was Discovered: called 911 Context: Intentional Overdose: drug/ETOH problems Context: Accidental Overdose: wanted to get high Treatments Prior to Arrival: narcan - Related Data Previous Rx's Medication Instructions Recorded Docusate [Colace] 100 mg PO BID #30 capsule 07/13/20 Hydrocodone/Acetaminophen [[place] 1 tab PO Q6HR PRN 3 Days #12 tab 07/13/20 5-325] Albuterol Sulfate [Albuterol 4 puff PO Q4H PRN #8.5 gm 11/19/21 Sulfate Hfa] Sulfamethox-Tmp 800-160Mg [Bactrim 1 tab PO Q12HR #20 tab 11/19/21 DS 800-160 mg] dexAMETHasone ORAL [Hexadrol] 6 mg PO DAILY #7 tablet 11/19/21 Allergies Allergy/AdvReac Type Severity Reaction Status Date / Time No Known Allergies Allergy Verified 01/24/22 05:27 Review of Systems ROS Statement: Those systems with pertinent positive or pertinent negative responses have been documented in the HPI. ROS Other: All systems not noted in ROS Statement are negative. Past Medical History Past Medical History: No Reported History History of Any Multi-Drug Resistant Organisms: None Reported Past Surgical History: Cholecystectomy Past Anesthesia/Blood Transfusion Reactions: No Reported Reaction Past Psychological History: Anxiety, Depression Smoking Status: Current every day smoker Past Alcohol Use History: Occasional Past Drug Use History: IV Drug Use, Marijuana - Past Family History Father Family Medical History: Hypertension General Exam General appearance: alert, in no apparent distress Head exam: Present: atraumatic, normocephalic, normal inspection Eye exam: Present: normal appearance, PERRL, EOMI. Absent: scleral icterus, conjunctival injection, periorbital swelling ENT exam: Present: normal exam, mucous membranes moist Neck exam: Present: normal inspection. Absent: tenderness, meningismus, lymphadenopathy Respiratory exam: Present: normal lung sounds bilaterally. Absent: respiratory distress, wheezes, rales, rhonchi, stridor Cardiovascular Exam: Present: regular rate, normal rhythm, normal heart sounds. Absent: systolic murmur, diastolic murmur, rubs, gallop, clicks GI/Abdominal exam: Present: soft, normal bowel sounds. Absent: distended, tenderness, guarding, rebound, rigid Extremities exam: Present: normal inspection, full ROM, normal capillary refill. Absent: tenderness, pedal edema, joint swelling, calf tenderness Back exam: Present: normal inspection Neurological exam: Present: alert, oriented X3, CN II-XII intact Psychiatric exam: Present: normal affect, normal mood Skin exam: Present: warm, dry, intact, normal color. Absent: rash Course Vital Signs 01/24/22 04:50 Temperature 98 F Pulse Rate 90 Respiratory 18 Rate Blood Pressure 110/72 O2 Sat by Pulse 99 Oximetry - Reevaluation(s) Reevaluation #1: 01/24/2022 Medical record is reviewed Patient symptoms are improved here in the emergency department Patient informed of results and questions are answered Medical Decision Making - Medical Decision Making 34 female to the emergency room unsafe for evaluation of overdose. Patient symptoms resolved with Narcan prior to arrival, awake alert here in the ER not homicidal or suicidal can be discharged home Disposition Clinical Impression: Overdose, Opioid abuse Disposition: HOME SELF-CARE Condition: Fair Instructions (If sedation given, give patient instructions): Narcotic Safety (ED), Opioid Safety (ED), Opioid Use Disorder (ED) Is patient prescribed a controlled substance at d/c from ED?: No Referrals: None,Stated [Primary Care Provider] - 1-2 days
[2022-01-24 05:25] VITALS: BP 110/72; PULSE 90; RESP 18; TEMP 98
== END 2022-01-24 05:00 | disposition home or self-care (01) ==
LOC: EC 04:41
DX: T40.1X1A Poisoning by heroin, accidental (unintentional), initial encounter (principal); F11.10 Opioid abuse, uncomplicated; F17.200 Nicotine dependence, unspecified, uncomplicated
CPT/HCPCS: 99284

== ENCOUNTER 2022-12-02 17:37 | Emergency (ER) | payer OTHER ==
--- NOTE | 2022-12-02 17:40 | ED ---
General Adult HPI <Maria Luisa Stapleton - Last Filed: 12/02/22 17:39> - General Source: patient, RN notes reviewed Mode of arrival: ambulatory Limitations: no limitations <EliasmannyBalbir - Last Filed: 12/02/22 19:44> - History of Present Illness Onset/Timin -: hour(s) Severity scale (1-10): 0 Consistency: constant Improves with: none Worsens with: none Associated Symptoms: nausea/vomiting Treatments Prior to Arrival: none <Matthew Moreno - Last Filed: 12/03/22 00:43> - General Stated complaint: hematemesis - 13 weeks Time Seen by Provider: 12/02/22 17:37 - History of Present Illness Initial comments: 32-year-old female presents to the emergency department with vomiting. Patient is bright red blood in her vomit. Patient also reports approximately 13 weeks . (Maria Luisa Stapleton) This patient is a 32-year-old woman, stating she is approximately 13 weeks by an ultrasound done at [facility]. She presents here to have evaluation of nausea and vomiting. Patient states that she felt well when she had gone to work this morning. She had gotten up around 5:00 taken her morning medicines, gone to work. She states around 8 AM she started having nausea. Since that time she has had multiple rounds of vomiting and she is not able to keep down any food or fluids. She states there was a little bit of abdominal discomfort but not really pain. No change in bowel movements. No change in urination (Matthew Moreno) - Related Data Previous Rx's Medication Instructions Recorded Docusate [Colace] 100 mg PO BID #30 capsule 07/13/20 Hydrocodone/Acetaminophen [[place] 1 tab PO Q6HR PRN 3 Days #12 tab 07/13/20 5-325] Albuterol Sulfate [Albuterol 4 puff PO Q4H PRN #8.5 gm 11/19/21 Sulfate Hfa] Sulfamethox-Tmp 800-160Mg [Bactrim 1 tab PO Q12HR #20 tab 11/19/21 DS 800-160 mg] dexAMETHasone ORAL [Hexadrol] 6 mg PO DAILY #7 tablet 11/19/21 Ondansetron Odt [Zofran ODT] 4 mg PO Q8HR PRN #10 tab 12/03/22 Allergies Allergy/AdvReac Type Severity Reaction Status Date / Time No Known Allergies Allergy Verified 12/02/22 18:37 Review of Systems ROS Other: All systems not noted in ROS Statement are negative. <PeytonbaileyMaria Luisa tee - Last Filed: 12/02/22 17:39> ROS Other: All systems not noted in ROS Statement are negative. <Balbir Clemens - Last Filed: 12/02/22 19:44> ROS Other: All systems not noted in ROS Statement are negative. Constitutional: Denies: fever, chills Respiratory: Denies: cough, dyspnea Cardiovascular: Denies: chest pain, palpitations Gastrointestinal: Reports: nausea, vomiting. Denies: abdominal pain, diarrhea Genitourinary: Denies: dysuria, frequency, hematuria Musculoskeletal: Denies: back pain Skin: Denies: rash Neurological: Denies: headache, weakness, numbness <JeseniamaureenMatthew - Last Filed: 12/03/22 00:43> ROS Statement: Those systems with pertinent positive or pertinent negative responses have been documented in the HPI. Past Medical History Past Medical History: No Reported History History of Any Multi-Drug Resistant Organisms: None Reported Past Surgical History: Cholecystectomy Past Anesthesia/Blood Transfusion Reactions: No Reported Reaction Past Psychological History: Anxiety, Depression Smoking Status: Current every day smoker Past Alcohol Use History: Occasional Past Drug Use History: IV Drug Use, Marijuana - Past Family History Father Family Medical History: Hypertension <PeytonbaileyMaria Luisa tee - Last Filed: 12/02/22 17:39> General Exam General appearance: alert, in no apparent distress Head exam: Present: atraumatic, normocephalic Eye exam: Present: normal appearance. Absent: scleral icterus, conjunctival injection Neck exam: Present: normal inspection, full ROM Respiratory exam: Present: normal lung sounds bilaterally. Absent: respiratory distress, wheezes, rales, rhonchi, stridor Cardiovascular Exam: Present: regular rate, normal rhythm, normal heart sounds. Absent: systolic murmur, diastolic murmur, rubs, gallop GI/Abdominal exam: Present: soft. Absent: distended, tenderness, guarding, rebound, rigid, mass Extremities exam: Present: normal inspection, normal capillary refill. Absent: pedal edema, calf tenderness Back exam: Present: normal inspection. Absent: CVA tenderness (R), CVA tenderness (L) Neurological exam: Present: alert Skin exam: Present: warm, dry, intact, normal color. Absent: rash <Matthew Moreno - Last Filed: 12/03/22 00:43> Course Vital Signs 12/02/22 12/02/22 18:35 19:50 Temperature 98.3 F Pulse Rate 82 91 Respiratory 20 Rate Blood Pressure 106/66 119/66 O2 Sat by Pulse 100 100 Oximetry Medical Decision Making - Lab Data Result diagrams: 12/02/22 19:49 12/02/22 19:49 <Matthew Moreno - Last Filed: 12/03/22 00:43> - Lab Data Lab Results 12/02/22 12/02/22 12/02/22 Range/Units 19:49 19:49 19:49 WBC 8.2 (3.8-10.6) k/uL RBC 4.84 (3.80-5.40) m/uL Hgb 14.1 (11.4-16.0) gm/dL Hct 42.1 (34.0-46.0) % MCV 86.9 (80.0-100.0) fL MCH 29.1 (25.0-35.0) pg MCHC 33.4 (31.0-37.0) g/dL RDW 12.7 (11.5-15.5) % Plt Count 245 (150-450) k/uL MPV 7.7 Neutrophils % 86 % Lymphocytes % 8 % Monocytes % 4 % Eosinophils % 1 % Basophils % 0 % Neutrophils # 7.0 (1.3-7.7) k/uL Lymphocytes # 0.7 L (1.0-4.8) k/uL Monocytes # 0.4 (0-1.0) k/uL Eosinophils # 0.1 (0-0.7) k/uL Basophils # 0.0 (0-0.2) k/uL Sodium 135 L (137-145) mmol/L Potassium 4.2 (3.5-5.1) mmol/L Chloride 103 (98-107) mmol/L Carbon Dioxide 25 (22-30) mmol/L Anion Gap 7 mmol/L BUN 10 (7-17) mg/dL Creatinine 0.57 (0.52-1.04) mg/dL Est GFR (CKD-EPI)AfAm >90 (>60 ml/min/1.73 sqM) Est GFR (CKD-EPI)NonAf >90 (>60 ml/min/1.73 sqM) Glucose 76 (74-99) mg/dL Calcium 9.2 (8.4-10.2) mg/dL Total Bilirubin 0.8 (0.2-1.3) mg/dL AST 107 H (14-36) U/L ALT 45 H (4-34) U/L Alkaline Phosphatase 95 (38-126) U/L Total Protein 8.2 (6.3-8.2) g/dL Albumin 4.6 (3.5-5.0) g/dL Urine Color Yellow Urine Appearance Clear (Clear) Urine pH 6.0 (5.0-8.0) Ur Specific [place] 1.033 (1.001-1.035) Urine Protein Trace H (Negative) Urine Glucose (UA) Negative (Negative) Urine Ketones 1+ H (Negative) Urine Blood Negative (Negative) Urine Nitrite Negative (Negative) Urine Bilirubin Negative (Negative) Urine Urobilinogen 2.0 (<2.0) mg/dL Ur Leukocyte Esterase Trace H (Negative) Urine RBC 1 (0-5) /hpf Urine WBC 2 (0-5) /hpf Ur Squamous Epith Cells 2 (0-4) /hpf Hyaline Casts 1 (0-2) /lpf Urine Mucus Many H (None) /hpf Disposition <Maria Luisa Stapleton - Last Filed: 12/02/22 17:39> <Balbir Clemens - Last Filed: 12/02/22 19:44> Is patient prescribed a controlled substance at d/c from ED?: No <Matthew Moreno - Last Filed: 12/03/22 00:43> Clinical Impression: Hyperemesis gravidarum Disposition: HOME SELF-CARE Condition: Good Instructions (If sedation given, give patient instructions): Acute Nausea and Vomiting (ED) Prescriptions: Ondansetron Odt [Zofran ODT] 4 mg PO Q8HR PRN #10 tab PRN Reason: Nausea Referrals: Tyree Hoyt MD [Primary Care Provider] - 1-2 days
[2022-12-02 18:37] VITALS: TEMP 98.3
[2022-12-02 20:33] LABS: Basophils % (A) 0 %; Eosinophils # (A) 0.1 k/uL (0-0.7); Eosinophils % (A) 1 %; HCT 42.1 % (34.0-46.0); HGB 14.1 gm/dL (11.4-16.0); Lymphocytes # (A) 0.7 k/uL (1.0-4.8); Lymphocytes % (A) 8 %; MCH 29.1 pg (25.0-35.0); MCHC 33.4 g/dL (31.0-37.0); MCV 86.9 fL (80.0-100.0); Mean Platelet Volume 7.7; Monocytes # (A) 0.4 k/uL (0-1.0); Monocytes % (A) 4 %; Neutrophils % (A) 86 %; Platelet Count 245 k/uL (150-450); RBC 4.84 m/uL (3.80-5.40); RDW 12.7 % (11.5-15.5); WBC 8.2 k/uL (3.8-10.6)
[2022-12-02 20:42] LABS: ALT 45 U/L (4-34); AST 107 U/L (14-36); African American GFR (CKD) >90 (>60 ml/min/1.73 sqM); Albumin 4.6 g/dL (3.5-5.0); Alkaline Phosphatase 95 U/L (38-126); Anion Gap 7 mmol/L; Blood Urea Nitrogen 10 mg/dL (7-17); Calcium 9.2 mg/dL (8.4-10.2); Carbon Dioxide 25 mmol/L (22-30); Chloride 103 mmol/L (98-107); Glucose 76 mg/dL (74-99); Non-African American GFR(CKD) >90 (>60 ml/min/1.73 sqM); Potassium 4.2 mmol/L (3.5-5.1); Sodium 135 mmol/L (137-145); Total Bilirubin 0.8 mg/dL (0.2-1.3); Total Protein 8.2 g/dL (6.3-8.2)
[2022-12-02 21:02] LABS: Appearance,Urine Clear (Clear); Bilirubin,Urine Negative (Negative); Blood,Urine Negative (Negative); Color,Urine Yellow; Glucose,Urine (UA) Negative (Negative); Hyaline Casts,Urine 1 /lpf (0-2); Ketones,Urine 1+ (Negative); Leukocyte Esterase,Urine Trace (Negative); Mucus,Urine Many /hpf; Nitrite,Urine Negative (Negative); Protein,Urine Trace (Negative); RBC,Urine 1 /hpf (0-5); Specific Gravity,Urine 1.033 (1.001-1.035); Squamous Epithelial Cell,Urine 2 /hpf (0-4); WBC,Urine 2 /hpf (0-5)
[2022-12-02] MEDS ORDERED: DEXTROSE 5%-0.45% NACL 1,000 ML IV ONE (22:01)
[2022-12-02] MEDS ORDERED: SODIUM CHLORIDE 0.9% 1,000 ML IV ONE (22:01)
[2022-12-02] MEDS ORDERED: ONDANSETRON 4 MG/2 ML VIAL IVP STA (22:02)
[2022-12-03 00:55] VITALS: BP 114/72; PULSE 68; RESP 16
== END 2022-12-03 00:55 | disposition home or self-care (01) ==
LOC: EC 17:37
DX: O21.0 Mild hyperemesis gravidarum (principal); F17.200 Nicotine dependence, unspecified, uncomplicated; F12.90 Cannabis use, unspecified, uncomplicated; Z90.49 Acquired absence of other specified parts of digestive tract; Z3A.13 13 weeks gestation of pregnancy
CPT/HCPCS: 36415; 80053; 85025; 81001; 99284; 96374; 96361; J2405

== ENCOUNTER 2022-12-22 00:48 | Observation (INO) | payer OTHER ==
[2022-12-22] MEDS ORDERED: SODIUM CHLORIDE 0.9% 1,000 ML IV ONE (00:58)
[2022-12-22] MEDS ORDERED: MORPHINE SULFATE 4 MG/ML SYRINGE IVP STA ×2 (01:00→02:00)
[2022-12-22 01:54] LABS: Basophils # (A) 0.1 k/uL (0-0.2); Basophils % (A) 0 %; Eosinophils % (A) 0 %; HCT 39.3 % (34.0-46.0); HGB 13.2 gm/dL (11.4-16.0); Lymphocytes # (A) 0.8 k/uL (1.0-4.8); Lymphocytes % (A) 4 %; MCH 29.1 pg (25.0-35.0); MCHC 33.6 g/dL (31.0-37.0); MCV 86.6 fL (80.0-100.0); Mean Platelet Volume 7.5; Monocytes # (A) 0.8 k/uL (0-1.0); Monocytes % (A) 4 %; Neutrophils # (A) 18.7 k/uL (1.3-7.7); Neutrophils % (A) 91 %; Platelet Count 277 k/uL (150-450); RBC 4.54 m/uL (3.80-5.40); WBC 20.5 k/uL (3.8-10.6)
--- NOTE | 2022-12-22 02:05 | US ---
EXAMINATION TYPE: US OB >= 14 wk fetus DATE OF EXAM: 12/22/2022 COMPARISON: None CLINICAL HISTORY: labor, non-viable ? Patient states she had an ultrasound at 7 wee ks at outside facility. Pain. No bleeding. TECHNIQUE: Transabdominal (TA) GESTATIONAL AGE / DATING Physician Established: (15 weeks/6 days) EDC: 06/09/2023 Dates by Current Scan: (16 weeks/5 days) EDC: 06/03/2023 Beta HCG (if available): Not available at this time SURVEY IUP: Single PLACENTA: Anterior PREVIA: No Previa ORION: 2.7 cm Oligohydramnios CERVICAL LENGTH (transabdominal: norm > 3.0cm): 2.4 cm BIOMETRY PRESENTATION: Breech BPD: 3.5 cm 16 weeks / 6 days HC: 13.5 cm 17 weeks / 1 days AC: 10.9 cm 16 weeks / 6 days FL: 2.0 cm 16 weeks / 0 days ESTIMATED WEIGHT IN GRAMS: 157 grams ESTIMATED WEIGHT IN LBS/OZ: 0 lbs. 6 oz. WEIGHT PERCENTAGE BASED ON ESTABLISHED DATES: 80% HC/AC: 1.2 Normal FL/AC: 18% HEART RATE: 0 bpm IUP visualized with negative heart tones- M-mode and color doppler performed. Oligohydramnios. Short cervix. IMPRESSION: There is oligohydramnios. There is intrauterine demise at approximately 16 weeks.
[2022-12-22 02:07] LABS: ALT 29 U/L (4-34); AST 50 U/L (14-36); African American GFR (CKD) >90 (>60 ml/min/1.73 sqM); Alkaline Phosphatase 99 U/L (38-126); Anion Gap 11 mmol/L; Blood Urea Nitrogen 9 mg/dL (7-17); Calcium 9.1 mg/dL (8.4-10.2); Carbon Dioxide 19 mmol/L (22-30); Chloride 103 mmol/L (98-107); Glucose 142 mg/dL (74-99); Non-African American GFR(CKD) >90 (>60 ml/min/1.73 sqM); Potassium 3.6 mmol/L (3.5-5.1); Sodium 133 mmol/L (137-145); Total Bilirubin 0.7 mg/dL (0.2-1.3); Total Protein 7.3 g/dL (6.3-8.2)
[2022-12-22 02:13] LABS: INR 0.9 (<1.2); Prothrombin Time 9.5 sec (9.0-12.0)
[2022-12-22 02:14] LABS: Partial Thromboplastin Time 23.4 sec (22.0-30.0)
[2022-12-22] MEDS ORDERED: NALOXONE 0.4 MG/ML 1 ML VIAL IV PRN (02:22)
--- NOTE | 2022-12-22 02:22 | ED ---
Abdominal Pain HPI - General Chief Complaint: Abdominal Pain Stated Complaint: 16wks preg,abd pain Time Seen by Provider: 12/22/22 00:55 Source: patient Mode of arrival: ambulatory Limitations: no limitations - History of Present Illness Initial Comments: 32-year-old female who is presents to the emergency Department with abdominal pain and suspected contractions. She is approximately 16 weeks . [place] with [place] [facility] [place] [facility] [place] She is high risk due to being on Suboxone. States that she has been clean for 10 months. She is down to 4 mg of Suboxone that she has been slowly titrating herself down in order to be "clean for the baby". She reports that just prior to hospital arrival she felt extreme pain in her abdomen. Arriving to the hospital she felt too gushes of fluid. She denies having any vaginal bleeding yet. Unsure of her blood type. Denies any abdominal trauma. No fevers. Has one daughter who is 11 years old. Denies any issues with care throughout this . No other alleviating, precipitating or modifying factors - Related Data Home Medications Medication Instructions Recorded Confirmed Metoclopramide [Reglan] 10 mg PO DIRECTED 12/22/22 12/22/22 QUEtiapine FUMARATE [SEROquel] 250 mg PO HS 12/22/22 12/22/22 buprenorphine HCL [Subutex] 4 mg SUBLINGUAL DAILY 12/22/22 12/22/22 busPIRone HCL 5 mg PO TID 12/22/22 12/22/22 Allergies Allergy/AdvReac Type Severity Reaction Status Date / Time No Known Allergies Allergy Verified 12/22/22 00:49 Review of Systems ROS Statement: Those systems with pertinent positive or pertinent negative responses have been documented in the HPI. ROS Other: All systems not noted in ROS Statement are negative. Past Medical History Past Medical History: No Reported History Additional Past Medical History / Comment(s): previous IVDA clean since february 2022 History of Any Multi-Drug Resistant Organisms: None Reported Past Surgical History: Cholecystectomy Past Anesthesia/Blood Transfusion Reactions: No Reported Reaction Past Psychological History: Anxiety, Depression Smoking Status: Vaper Past Alcohol Use History: None Reported, Occasional Past Drug Use History: None Reported, IV Drug Use, Marijuana - Past Family History Father Family Medical History: Hypertension Mother Additional Family Medical History / Comment(s): of liver failure General Exam Limitations: no limitations General appearance: alert, anxious, in distress Head exam: Present: atraumatic, normocephalic, normal inspection Eye exam: Present: normal appearance, PERRL, EOMI. Absent: scleral icterus, conjunctival injection, periorbital swelling ENT exam: Present: normal exam, mucous membranes moist Neck exam: Present: normal inspection. Absent: tenderness, meningismus, lymphadenopathy Respiratory exam: Present: normal lung sounds bilaterally. Absent: respiratory distress, wheezes, rales, rhonchi, stridor Cardiovascular Exam: Present: normal rhythm, tachycardia, normal heart sounds. Absent: systolic murmur, diastolic murmur, rubs, gallop, clicks GI/Abdominal exam: Present: soft, tenderness (Suprapubic), normal bowel sounds. Absent: distended, guarding, rebound, rigid External exam: Present: other (Speculum exam not performed however the patient does have clear fluid saturating the bed. There is also a tinge of blood noted on tissue paper that the patient has in her underwear) Speculum exam: Present: vaginal bleeding Extremities exam: Present: normal inspection, full ROM, normal capillary refill. Absent: tenderness, pedal edema, joint swelling, calf tenderness Back exam: Present: normal inspection Neurological exam: Present: alert, oriented X3, CN II-XII intact Psychiatric exam: Present: normal affect, normal mood Skin exam: Present: warm, dry, intact, normal color. Absent: rash Course Vital Signs 12/22/22 12/22/22 00:49 01:47 Temperature 98.8 F Pulse Rate 140 H 110 H Respiratory 32 H 18 Rate Blood Pressure 137/87 102/59 O2 Sat by Pulse 100 100 Oximetry Medical Decision Making - Medical Decision Making Was pt. sent in by a medical professional or institution (, PA, [facility], urgent care, hospital, or halfway...) When possible be specific No Did you speak to anyone other than the patient for history (EMS, parent, family, police, friend...)? What history was obtained from this source No Did you review nursing and triage notes (agree or disagree)? Why? I reviewed and agree with nursing and triage notes Were old charts reviewed (outside hosp., previous admission, EMS record, old EKG, old radiological studies, urgent care reports/EKG's, halfway records)? Report findings No Differential Diagnosis (chest pain, altered mental status, abdominal pain women, abdominal pain men, vaginal bleeding, weakness, fever, dyspnea, syncope, head ache, dizziness, GI bleed, back pain, seizure, CVA, palpatations, mental health)? threatened miscarriage, incomplete , demise, PROM EKG interpreted by me (3pts min.). Not done X-rays interpreted by me (1pt min.). Not done CT interpreted by me (1pt min.). Not sone U/S interpreted by me (1pt. min.). Yes What testing was considered but not performed or refused? (CT, X-rays, U/S, labs)? Why? None What meds were considered but not given or refused? Why? None Did you discuss the management of the patient with other professionals (professionals i.e. , PA, [employer], lab, RT, psych nurse, social media executive, rayon coner, teacher, airport operations officer, briefcase sewer)? Give summary Dr. Hyatt Was smoking cessation discussed for >3mins.? No Was critical care preformed (if so, how long)? yes, 35 minutes Were there social determinants of health that impacted care today? How? (Homelessness, low income, unemployed, alcoholism, drug addiction, transportation, low edu. Level, literacy, decrease access to med. care, longterm, rehab)? No Was there de-escalation of care discussed even if they declined (Discuss DNR or withdrawal of care, Hospice)? DNR status No What co-morbidities impacted this encounter? (DM, HTN, Smoking, COPD, CAD, Cancer, CVA, ARF, Chemo, Hep., AIDS, mental health diagnosis, sleep apnea, morbid obesity)? Hx substance abuse on suboxone Was patient admitted / discharged? Hospital course, mention meds given and route, prescriptions, significant lab abnormalities, going to OR and other pertinent info. Upon arrival patient was placed into room 28. A thorough history and physical exam was performed. Patient does have a gush of fluid. Bleeding noted on the toilet paper the patient has placed in her vagina. IV is established. She is given 4 of morphine for pain control. Laboratory studies were conducted with symmetry a white count of 20.5. Bedside ultrasound was performed. Oligo hydramnios appreciated. No heart tones. I did follow this with formal ultrasound which demonstrates similar results. This is discussed with the patient. She continues to have significant pain and therefore an additional 4 mg of morphine is ordered. I called and spoke with Dr. Hyatt. Patient's will be admitted for delivery Undiagnosed new problem with uncertain prognosis? Yes Drug Therapy requiring intensive monitoring for toxicity (Heparin, Nitro, Insulin, Cardizem)? No Were any procedures done? Bedside ultrasound Diagnosis/symptom? demise with premature labor Acute, or Chronic, or Acute on Chronic? acute Uncomplicated (without systemic symptoms) or Complicated (systemic symptoms)? complicated Side effects of treatment? None Exacerbation, Progression, or Severe Exacerbation? no Poses a threat to life or bodily function? How? (Chest pain, USA, CA, pneumonia, PE, COPD, DKA, ARF, appy, cholecystitis, CVA, Diverticulitis, Homicidal, Suicidal, threat to staff... and all critical care pts) Yes Undiagnosed new problem with uncertain prognosis? @ -[No] Drug Therapy requiring intensive monitoring for toxicity (Heparin, Nitro, Insulin, Cardizem)? @ -[No] Were any procedures done? @ -[No] Diagnosis/symptom? @ -[default] Acute, or Chronic, or Acute on Chronic? @ -[default] Uncomplicated (without systemic symptoms) or Complicated (systemic symptoms)? @ -[default] Side effects of treatment? @ -[No] Exacerbation, Progression, or Severe Exacerbation? @ -[No] Poses a threat to life or bodily function? How? (Chest pain, USA, CA, pneumonia, PE, COPD, DKA, ARF, appy, cholecystitis, CVA, Diverticulitis, Homicidal, Suicidal, threat to staff... and all critical care pts) @ -[No] - Lab Data Result diagrams: 12/23/22 05:37 12/23/22 05:37 Lab Results 12/22/22 12/22/22 12/22/22 Range/Units 01:00 01:00 01:19 WBC 20.5 H (3.8-10.6) k/uL RBC 4.54 (3.80-5.40) m/uL Hgb 13.2 (11.4-16.0) gm/dL Hct 39.3 (34.0-46.0) % MCV 86.6 (80.0-100.0) fL MCH 29.1 (25.0-35.0) pg MCHC 33.6 (31.0-37.0) g/dL RDW 13.0 (11.5-15.5) % Plt Count 277 (150-450) k/uL MPV 7.5 Neutrophils % 91 % Lymphocytes % 4 % Monocytes % 4 % Eosinophils % 0 % Basophils % 0 % Neutrophils # 18.7 H (1.3-7.7) k/uL Lymphocytes # 0.8 L (1.0-4.8) k/uL Monocytes # 0.8 (0-1.0) k/uL Eosinophils # 0.0 (0-0.7) k/uL Basophils # 0.1 (0-0.2) k/uL PT (9.0-12.0) sec INR (<1.2) APTT (22.0-30.0) sec Sodium (137-145) mmol/L Potassium (3.5-5.1) mmol/L Chloride (98-107) mmol/L Carbon Dioxide (22-30) mmol/L Anion Gap mmol/L BUN (7-17) mg/dL Creatinine (0.52-1.04) mg/dL Est GFR (CKD-EPI)AfAm (>60 ml/min/1.73 sqM) Est GFR (CKD-EPI)NonAf (>60 ml/min/1.73 sqM) Glucose (74-99) mg/dL Calcium (8.4-10.2) mg/dL Total Bilirubin (0.2-1.3) mg/dL AST (14-36) U/L ALT (4-34) U/L Alkaline Phosphatase (38-126) U/L Total Protein (6.3-8.2) g/dL Albumin (3.5-5.0) g/dL Blood Type Blood Type Confirm AB Positive Blood Type Recheck No Previous Record Bld Type Recheck Status CABO Indicated Antibody Screen Spec Expiration Date 12/22/22 12/22/22 12/22/22 Range/Units 01:19 01:19 01:52 WBC (3.8-10.6) k/uL RBC (3.80-5.40) m/uL Hgb (11.4-16.0) gm/dL Hct (34.0-46.0) % MCV (80.0-100.0) fL MCH (25.0-35.0) pg MCHC (31.0-37.0) g/dL RDW (11.5-15.5) % Plt Count (150-450) k/uL MPV Neutrophils % % Lymphocytes % % Monocytes % % Eosinophils % % Basophils % % Neutrophils # (1.3-7.7) k/uL Lymphocytes # (1.0-4.8) k/uL Monocytes # (0-1.0) k/uL Eosinophils # (0-0.7) k/uL Basophils # (0-0.2) k/uL PT 9.5 (9.0-12.0) sec INR 0.9 (<1.2) APTT 23.4 (22.0-30.0) sec Sodium 133 L (137-145) mmol/L Potassium 3.6 (3.5-5.1) mmol/L Chloride 103 (98-107) mmol/L Carbon Dioxide 19 L (22-30) mmol/L Anion Gap 11 mmol/L BUN 9 (7-17) mg/dL Creatinine 0.52 (0.52-1.04) mg/dL Est GFR (CKD-EPI)AfAm >90 (>60 ml/min/1.73 sqM) Est GFR (CKD-EPI)NonAf >90 (>60 ml/min/1.73 sqM) Glucose 142 H (74-99) mg/dL Calcium 9.1 (8.4-10.2) mg/dL Total Bilirubin 0.7 (0.2-1.3) mg/dL AST 50 H (14-36) U/L ALT 29 (4-34) U/L Alkaline Phosphatase 99 (38-126) U/L Total Protein 7.3 (6.3-8.2) g/dL Albumin 4.0 (3.5-5.0) g/dL Blood Type AB Positive Blood Type Confirm Blood Type Recheck Bld Type Recheck Status Antibody Screen NEGATIVE Spec Expiration Date 12/25/2022 - 2299 Critical Care Time Critical Care Time: Yes Critical Care Time: 35 minutes Disposition Clinical Impression: demise, Active labor Disposition: ADMITTED IP TO THIS [facility] Condition: Good Is patient prescribed a controlled substance at d/c from ED?: No Time of Disposition: : Decision to Admit Reason: Admit from EC Decision Date: 12/22/22 Decision Time: :
[2022-12-22] MEDS ORDERED: SODIUM CHLORIDE 0.9% 1,000 ML IV SCH (02:30)
[2022-12-22 02:35] LABS: Appearance,Urine Clear (Clear); Bilirubin,Urine Negative (Negative); Blood,Urine Trace (Negative); Color,Urine Light Yellow; Glucose,Urine (UA) Negative (Negative); Hyaline Casts,Urine 1 /lpf (0-2); Ketones,Urine Negative (Negative); Leukocyte Esterase,Urine Negative (Negative); Mucus,Urine Rare /hpf; Nitrite,Urine Negative (Negative); Protein,Urine Negative (Negative); Specific Gravity,Urine 1.005 (1.001-1.035); Squamous Epithelial Cell,Urine 2 /hpf (0-4); Urobilinogen,Urine <2.0 mg/dL (<2.0); WBC,Urine 1 /hpf (0-5)
[2022-12-22 03:10] LABS: Amphetamine Screen,Urine Not Detected (NotDetected); Barbiturate Screen,Urine Not Detected (NotDetected); Benzodiazepines Screen,Urine Not Detected (NotDetected); Cocaine Screen,Urine Not Detected (NotDetected); Methadone Screen, Urine Not Detected (NotDetected); Opiate Screen,Urine Detected (NotDetected); Oxycodone Screen, Urine Not Detected (NotDetected); Phencyclidine Screen,Urine Not Detected (NotDetected); Tricyclic Antidepressant,Urine Not Detected (NotDetected); Urn Cannabinoid Scrn Not Detected (NotDetected)
[2022-12-22] MEDS ORDERED: LIDOCAINE 0.5% (PF) 5 MG/ML (50 ML SDV) SQ PRN (03:44)
[2022-12-22] MEDS ORDERED: TERBUTALINE 1 MG/ML VIAL SQ PRN (03:44)
[2022-12-22] MEDS: LACTATED RINGERS 1,000 ML IV SCH ×2 (03:51→04:38)
[2022-12-22] MEDS ORDERED: SODIUM CHLORIDE 0.9% 100 ML BAG ONE (04:15)
[2022-12-22] MEDS ORDERED: fentaNYL (PF) 50 MCG/ML 5 ML AMP ONE (04:15)
[2022-12-22] MEDS ORDERED: ROPIVACAINE 5 MG/ML 20 ML AMPULE ONE (04:15)
[2022-12-22] MEDS ORDERED: AMPICILLIN 2,000 MG in SODIUM CHLORIDE 0.9% 100 ML IVPB STA (06:30)
[2022-12-22] MEDS ORDERED: ACETAMINOPHEN IV (For NPO) 1,000 MG in EMPTY BAG 1 BAG IVPB PRN (06:44)
[2022-12-22] MEDS ORDERED: METOCLOPRAMIDE 10 MG TAB PO PRN (06:45)
[2022-12-22] MEDS ORDERED: miSOPROStoL 200 MCG TAB PO STA ×2 (07:05→07:39)
[2022-12-22] MEDS ORDERED: diphenhydrAMINE 50 MG CAP PO PRN (07:06)
[2022-12-22] MEDS ORDERED: diphenhydrAMINE 50 MG/ML 1 ML VIAL IVP PRN ×2 (07:06)
[2022-12-22] MEDS ORDERED: BENZOCAINE/MENTHOL SPRAY 1 GM/SPRAY AEROSOL TOPICAL PRN (07:06)
[2022-12-22] MEDS ORDERED: diphenhydrAMINE 25 MG CAP PO PRN (07:06)
[2022-12-22] MEDS ORDERED: ACETAMINOPHEN TAB 325 MG TAB PO PRN (07:06)
[2022-12-22] MEDS ORDERED: HYDROCORTISONE 2.5% RECTAL CREAM 30 GM TUBE RECTAL PRN (07:06)
[2022-12-22] MEDS ORDERED: LANOLIN CREAM 5 GM TUBE TOPICAL PRN (07:06)
[2022-12-22] MEDS ORDERED: ZOLPIDEM 5 MG TAB PO PRN (07:06)
[2022-12-22] MEDS ORDERED: SIMETHICONE 80 MG CHEWABLE PO PRN (07:06)
--- NOTE | 2022-12-22 07:16 | P.HPOB ---
History of Present Illness H&P Date: 12/22/22 Chief Complaint: IUP at 16 weeks, demise This is a 32-year-old at 16 weeks of that presents with complaints of rupture of membranes around 9 PM. Patient states she only had 1 visit at [facility], around 7 weeks. She states "no one around here would touch me" she is currently on Suboxone since February when she went to rehab. She states she has been "clean" for about 10 months. Patient was seen in the emergency department where ultrasound was obtained, no fluid was appreciated around the baby and no heart tones were noted. I was consulted at that time. Patient was then transferred to labor and delivery. Patient's first was in 2011, no care issues, viable female delivered 8 lbs. 9 oz. vaginally, patient states she did have a hemorrhage and subsequent infection after delivery. She states she was on antibiotics for about 4 days after delivery. Review of Systems Constitutional: Reports fatigue, Reports fever, Denies chills Ears, nose, mouth and throat: Denies headache Cardiovascular: Denies leg edema Respiratory: Denies dyspnea Gastrointestinal: Denies constipation, Denies diarrhea, Denies nausea, Denies vomiting Genitourinary: Reports Past Medical History Past Medical History: No Reported History Additional Past Medical History / Comment(s): previous IVDA clean since february 2022 History of Any Multi-Drug Resistant Organisms: None Reported Past Surgical History: Cholecystectomy Past Anesthesia/Blood Transfusion Reactions: No Reported Reaction Past Psychological History: Anxiety, Depression Smoking Status: Vaper Past Alcohol Use History: None Reported, Occasional Past Drug Use History: None Reported, IV Drug Use Additional Drug Use History / Comment(s): Patient states she vapes - Past Family History Father Family Medical History: Hypertension Mother Additional Family Medical History / Comment(s): of liver failure Medications and Allergies Home Medications Medication Instructions Recorded Confirmed Type Metoclopramide [Reglan] 10 mg PO DIRECTED 12/22/22 12/22/22 History QUEtiapine FUMARATE [SEROquel] 250 mg PO HS 12/22/22 12/22/22 History buprenorphine HCL [Subutex] 4 mg SUBLINGUAL DAILY 12/22/22 12/22/22 History busPIRone HCL 5 mg PO TID 12/22/22 12/22/22 History Allergies Allergy/AdvReac Type Severity Reaction Status Date / Time No Known Allergies Allergy Verified 12/22/22 00:49 Exam Osteopathic Statement: *. No significant issues noted on an osteopathic structural exam other than those noted in the History and Physical/Consult. Vital Signs Temp Pulse Pulse Resp BP BP Pulse Ox 12/22/22 03:52 99.1 F 125 H 18 131/75 12/22/22 01:47 110 H 18 102/59 100 12/22/22 00:49 98.8 F 140 H 32 H 137/87 100 Intake and Output 12/21/22 12/21/22 12/22/22 14:59 22:59 06:59 Other: # Voids 1 Weight 74.843 kg Upon arrival to the unit, fetus had delivered, umbilical cord was noted at the perineum. No lacerations were appreciated. Patient appeared appropriate for situation, breathing was not labored, abdomen was noted to be soft and nontender Results Result Diagrams: 12/22/22 01:19 12/22/22 01:19 Abnormal Lab Results - Last 24 Hours (Table) 12/22/22 12/22/22 12/22/22 Range/Units 01:19 01:19 02:25 WBC 20.5 H (3.8-10.6) k/uL Neutrophils # 18.7 H (1.3-7.7) k/uL Lymphocytes # 0.8 L (1.0-4.8) k/uL Sodium 133 L (137-145) mmol/L Carbon Dioxide 19 L (22-30) mmol/L Glucose 142 H (74-99) mg/dL AST 50 H (14-36) U/L Urine Blood Trace H (Negative) Urine Mucus Rare H (None) /hpf Urine Opiates Screen (NotDetected) 12/22/22 Range/Units 02:25 WBC (3.8-10.6) k/uL Neutrophils # (1.3-7.7) k/uL Lymphocytes # (1.0-4.8) k/uL Sodium (137-145) mmol/L Carbon Dioxide (22-30) mmol/L Glucose (74-99) mg/dL AST (14-36) U/L Urine Blood (Negative) Urine Mucus (None) /hpf Urine Opiates Screen Detected H (NotDetected) Assessment and Plan (1) Fever Current Visit: Yes Status: Acute Code(s): R50.9 - FEVER, UNSPECIFIED SNOMED Code(s): 373259907 (2) demise Current Visit: Yes Status: Acute Code(s): DAD3760 - SNOMED Code(s): 276 585195 (3) premature rupture of membranes (PPROM) delivered, current hospi talization Current Visit: Yes Status: Acute Code(s): O42.919 - PRETRM TITI ROM, UNSP TIME BETW RUPT AND ONST LABR, UNSP TRI SNOMED Code(s): 917621311 Plan: This is a 32-year-old at 16 weeks of that presented with premature rupture of membranes, no heart tones appreciated and ultrasound. Patient was transferred to labor and delivery and had subsequent delivery of a 16 week nonviable male fetus. Placenta currently remains intact at the cervix, bleeding is appropriate. We will plan IV antibiotics given maternal fever, Ofirmev is ordered and will be given. Await delivery of the placenta.
--- NOTE | 2022-12-22 07:17 | P.PROBDLV ---
Vaginal Delivery Note - . Vaginal Delivery Note: 32-year-old at 16 weeks that presented to the emergency department earlier this evening with complaints of spontaneous rupture of membranes and abdominal pain. Patient had an ultrasound revealing oligohydramnios and no heart tones. Patient was transferred to labor and delivery where patient was noted to be dilated to fingertip/thick/high. On ultrasound was noted to be in a breech presentation. Patient was admitted to labor and delivery, patient was very uncomfortable therefore epidural was requested and placed by the anesthesia department. Patient noted vaginal pressure and had delivery of a nonviable male fetus. Umbilical cord clamp was placed and infant was handed to mom. Maternal fever was appreciated at this time and antibiotics were begun. Patient continues to have irregular contractions with urges to push, placenta remains. Bleeding is stable. Plan Cytotec for augmentation/delivery of placenta.
[2022-12-22] MEDS: AMPICILLIN 1,000 MG in SODIUM CHLORIDE 0.9% 50 ML IVPB SCH ×4 (11:09→22:25)
[2022-12-22] MEDS: IBUPROFEN 600 MG TAB PO SCH ×3 (11:10→21:45)
[2022-12-22] MEDS: SENNOSIDES-DOCUSATE SODIUM 1 EACH TAB PO SCH ×2 (11:10→21:45)
[2022-12-22] MEDS: busPIRone HCl 5 MG TAB PO SCH ×3 (12:11→21:45)
[2022-12-22] MEDS: BUPRENORPHINE HCL 2 MG SUBLINGUAL SCH (12:12)
[2022-12-22 14:58] VITALS: RESP 16
[2022-12-22 16:44] LABS: Hepatitis B Surface Antigen Nonreactive (Nonreactive)
[2022-12-22] MEDS ORDERED: QUEtiapine 50 MG TAB PO SCH (21:00)
[2022-12-22] MEDS ORDERED: QUEtiapine 200 MG TAB PO SCH (21:00)
[2022-12-23] MEDS: AMPICILLIN 1,000 MG in SODIUM CHLORIDE 0.9% 50 ML IVPB SCH ×3 (02:35→10:33)
[2022-12-23] MEDS: IBUPROFEN 600 MG TAB PO SCH ×3 (02:37→11:18)
[2022-12-23 06:09] LABS: African American GFR (CKD) >90 (>60 ml/min/1.73 sqM); Anion Gap 3 mmol/L; Blood Urea Nitrogen 7 mg/dL (7-17); Calcium 8.1 mg/dL (8.4-10.2); Carbon Dioxide 23 mmol/L (22-30); Chloride 112 mmol/L (98-107); Glucose 97 mg/dL (74-99); Non-African American GFR(CKD) >90 (>60 ml/min/1.73 sqM); Potassium 4.2 mmol/L (3.5-5.1); Sodium 138 mmol/L (137-145)
[2022-12-23 06:18] LABS: Basophils % (A) 0 %; Eosinophils # (A) 0.2 k/uL (0-0.7); Eosinophils % (A) 2 %; HCT 28.9 % (34.0-46.0); Lymphocytes # (A) 2.4 k/uL (1.0-4.8); Lymphocytes % (A) 24 %; MCH 30.7 pg (25.0-35.0); MCHC 34.2 g/dL (31.0-37.0); MCV 89.6 fL (80.0-100.0); Mean Platelet Volume 7.5; Monocytes # (A) 0.4 k/uL (0-1.0); Monocytes % (A) 4 %; Neutrophils # (A) 6.9 k/uL (1.3-7.7); Neutrophils % (A) 68 %; Platelet Count 227 k/uL (150-450); RBC 3.22 m/uL (3.80-5.40); RDW 13.2 % (11.5-15.5); WBC 10.2 k/uL (3.8-10.6)
[2022-12-23 06:33] LABS: HGB 9.9 gm/dL (11.4-16.0)
--- NOTE | 2022-12-23 06:44 | P.DS ---
Providers Date of admission: 12/22/22 02:23 Expected date of discharge: 12/23/22 Attending physician: Carley Hyatt Primary care physician: Tyree Hoyt - Discharge Diagnosis(es) (1) Fever Current Visit: Yes Status: Acute (2) demise Current Visit: Yes Status: Acute (3) premature rupture of membranes (PPROM) delivered, current hospitalization Current Visit: Yes Status: Acute Hospital Course: 32 yo that presented to the emergency department at 16 weeks of gestation with complaints of rupture of membranes on 12/22 at 2100 and abdominal pain. Patient had not received care during this , patient is currently on Suboxone and states she has been "clean" for approximately 10 months. For complete details on this patient please see the dictated history and physical. Patient had an ultrasound in the ER revealing oligohydramnios and no heart tones. Patient was subsequently transferred to labor and delivery. Patient was quite uncomfortable upon presentation and did request epidural placement. Epidural was placed by the anesthesia department. She shouldn't had noted increase in vaginal pressure and had delivery of a nonviable fetus. Maternal fever was noted at the time of delivery and antibiotics were begun. Patient had subsequent delivery of the placenta after Cytotec augmentation. Patient did have noted elevated white count upon admission of 20.5 but is normalized today to 10.2. In addition patient has noted acute blood loss anemia with admitting hemoglobin of 13.2 now dropping to 9.9. Patient was complaints this morning. No shortness of breath or lightheadedness is appreciated. Patient denies nausea or vomiting, lochia has been appropriate post delivery. Pain is currently well-controlled. Patient Condition at Discharge: Good Plan - Discharge Summary New Discharge Prescriptions: No Action buprenorphine HCL [Subutex] 4 mg SUBLINGUAL DAILY busPIRone HCL 5 mg PO TID Metoclopramide [Reglan] 10 mg PO DIRECTED QUEtiapine FUMARATE [SEROquel] 250 mg PO HS Discharge Medication List Metoclopramide [Reglan] 10 mg PO DIRECTED 12/22/22 [History] QUEtiapine FUMARATE [SEROquel] 250 mg PO HS 12/22/22 [History] buprenorphine HCL [Subutex] 4 mg SUBLINGUAL DAILY 12/22/22 [History] busPIRone HCL 5 mg PO TID 12/22/22 [History] Follow up Appointment(s)/Referral(s): Carley Hyatt DO [Doctor of Osteopathic Medicine] - 4 Weeks Activity/Diet/Wound Care/Special Instructions: [id number] ibuprofen as needed for pain every 6 hours. Patient is counseled on bleeding precautions. Patient is to schedule routine visit in 4 weeks, should she have any concerns prior to this visit she is urged to call the office. Discharge Disposition: HOME SELF-CARE
[2022-12-23] MEDS: SENNOSIDES-DOCUSATE SODIUM 1 EACH TAB PO SCH (07:54)
[2022-12-23] MEDS: busPIRone HCl 5 MG TAB PO SCH (08:48)
[2022-12-23] MEDS: BUPRENORPHINE HCL 2 MG SUBLINGUAL SCH (08:51)
[2022-12-23 12:03] VITALS: BP 121/74; PULSE 92; TEMP 97.9
[2022-12-23 13:36] LABS: HIV 2 AB Non-Reactive (Non-Reactive); HIV AB P24 Non-Reactive (Non-Reactive); HIV P24 AG Non-Reactive (Non-Reactive)
[2022-12-24 14:08] LABS: C. trachomatis,PCR Negative (Neg,Equiv); Chlamydia trachomatis Source Urine; N. gonorrhoeae,PCR Negative (Neg,Equiv); Neisseria Source Urine
== END 2022-12-23 11:50 | disposition home or self-care (01) ==
LOC: EC 00:48 → INTOOBSV 02:23 → OBSVTOIN 02:23 → 4FBP 02:23 → UNDODISOB 12-23 11:50 → UNDODISIN 12-23 11:50
PROVIDERS: ADMIT Obstetrics & Gynecology Obstetrics; ATTEND Obstetrics & Gynecology Obstetrics
PROC: 10E0XZZ Delivery of Products of Conception, External Approach (ICD-10-PCS; principal; 2022-12-22)
DX: O02.1 Missed abortion (principal); D62 Acute posthemorrhagic anemia; R50.9 Fever, unspecified; F32.A Depression, unspecified; F41.9 Anxiety disorder, unspecified; F11.20 Opioid dependence, uncomplicated; F17.290 Nicotine dependence, other tobacco product, uncomplicated; Z79.899 Other long term (current) drug therapy; Z3A.16 16 weeks gestation of pregnancy; Z87.898 Personal history of other specified conditions; Z90.49 Acquired absence of other specified parts of digestive tract; Z82.49 Family history of ischemic heart disease and other diseases of the circulatory system; Z83.79 Family history of other diseases of the digestive system
CPT/HCPCS: 96365; 96366 ×2; 96367; 96376; 96361; 96375; 99285; 36415; 86900; 86901; 86762; 88305; 80053; 80048; 82947; 85025 ×2; 85610; 85730; 86850; 87340; 81001; 88300; 87491; 87591; 86780; 80306; 87390; 76805; G0378 ×2; J2270; J3010; S0191; J0290 ×3; J0131; J2795